=== PATIENT | male | born 1995 | race Caucasian/White ===

== ENCOUNTER → 2020-06-06 | Outpatient (CLI) | payer BC ==
--- NOTE | 2020-06-07 10:11 | RADIOLOGY REPORT (SQ) ---
EXAM DESCRIPTION: MRI LT LOWER JOINT WITHOUT IMAGES COMPLETED DATE/TIME: 06/06/2020 2:49 pm REASON FOR STUDY: M25.562 LEFT KNEE PAIN M25.562 PAIN IN LEFT KNEE COMPARISON: None. TECHNIQUE: Leftknee images acquired and stored on PACS. Multiplanar images include fat sensitive se quences as T1, water sensitive sequences as FST2 or STIR, cartilage sensitive sequences as FSPD, and gradient echo sequences. LIMITATIONS: None. FINDINGS: JOINT AND BURSAE: No effusion. BONE CORTEX AND MARROW: No alteration of signal to suggest marrow replacement. No worrisome bone lesi ons. No occult fracture. ACL: Intact. No degeneration or ganglion cyst. PCL: Intact. MCL: Intact. No periligamentous edema or fluid. LCL: Intact. No periligamentous edema or fluid. MEDIAL MENISCUS: No tears. No abnormal signal. LATERAL MENISCUS: No tears. No abnormal signal. MEDIAL COMPARTMENT: Cartilage preserved. No bone bruises or reactive marrow edema. No osteophytes. LATERAL COMPARTMENT: Cartilage preserved. No bone bruises or reactive marrow edema. No osteophytes. PATELLA: No chondral lesions. The tibial tuberosity to trochlear groove distance (TT-TG) is abnormal at 2.2 cm. EXTENSOR MECHANISM: Intact. Quadriceps and patella tendons normal. SOFT TISSUES: Trace Henry's cyst. Appropriate vascular flow voids. OTHER: No other significant finding. IMPRESSION: 1. Findings suggesting abnormal patellar instability, abnormal TT-TG distance. 2. No other internal derangement of the knee appreciated. Cruciate and collateral ligaments are inta ct. No meniscus tear or chondral lesions. TECHNICAL DOCUMENTATION: JOB ID: [id number]- All Rights Reserved Reading location - IP/workstation name: [email or web address]
== END ==
LOC: RAD 13:53
PROVIDERS: ATTEND Physician Assistant
DX: M25.562 Pain in left knee (principal)

== ENCOUNTER 2020-06-25 17:36 | Emergency (ER) | payer BC ==
[2020-06-25 17:51] VITALS: BP 111/63
--- NOTE | 2020-06-25 19:04 | ER Document Report ---
HPI - HPI Time Seen by Provider: 06/25/20 18:52 Context: Patient is a 25-year-old male he presents to the emergency department with a chief complaint of right low back pain. Patient states that he was bending over working the garden and felt pain in his back. This happened about 2 days ago. Patient is stable now. Denies any bladder or bowel dysfunction. Denies any history of drug use. Denies any history of cancer. - ROS Systems Reviewed and Negative: Yes All other systems reviewed and negative - CARDIOVASCULAR Cardiovascular: DENIES: Chest pain - RESPIRATORY Respiratory: DENIES: Trouble Breathing, Coughing - GASTROINTESTINAL Gastrointestinal: DENIES: Abdominal Pain, Nausea, Patient vomiting - URINARY Urinary: DENIES: Dysuria, Urgency, Frequency - MUSCULOSKELETAL Musculoskeletal: REPORTS: Back Pain - Right low. DENIES: Extremity pain, Swelling - DERM Skin Color: Normal Skin Problems: None Past Medical History - Social History Smoking Status: Current Every Day Smoker Family History: Reviewed & Not Pertinent Vertical Provider Document - CONSTITUTIONAL Agree With Documented VS: Yes Exam Limitations: No Limitations General Appearance: No Apparent Distress - HEENT HEENT: Atraumatic, Normocephalic, PERRLA - NECK Neck: Normal Inspection - RESPIRATORY Respiratory: Breath Sounds Normal, No Respiratory Distress - CARDIOVASCULAR Cardiovascular: Regular Rate, Regular Rhythm Pulses: Normal: Radial - MUSCULOSKELETAL/EXTREMETIES Musculoskeletal/Extremeties: FROM, Tender - Right low back - NEURO Level of Consciousness: Awake, Alert, Appropriate Motor/Sensory: No Motor Deficit, No Sensory Deficit - DERM Integumentary: Warm, Dry, No Rash Course - Re-evaluation Re-evalutation: 06/25/20 19:07 Differential diagnosis for back pain includes muscle spasm, muscle strain, slipped disc cauda equina syndrome, vertebral fracture, vertebral tumor, epidural abscess, pyelonephritis, or AAA. Based on history and exam, the most likely etiology of the patient's back pain is musculoskeletal in nature. Emergent MRI is not indicated at this time because the patient does not have new weakness, or cauda equina syndrome. Patient does not have bladder or bowel dysfunction. Patient does not have history of IV drug use, therefore, I do not suspect an epidural abscess. Patient does not have recent weight loss or night sweats, and does not have a known history of cancer. - Vital Signs Vital signs: Temp Pulse Resp BP Pulse Ox 98.6 F 73 16 111/63 99 06/25/20 17:50 06/25/20 17:50 06/25/20 17:50 06/25/20 17:50 06/25/20 17:50 Discharge - Discharge Clinical Impression: Back pain Qualifiers: Back pain location: low back pain Chronicity: acute Back pain laterality: right Sciatica presence: without sciatica Qualified Code(s): M54.5 - Low back pain Condition: Stable Disposition: HOME, SELF-CARE Additional Instructions: You were seen today in the emergency department for back pain. Your back pain is most consistent with muscle strain. You may take acetaminophen 1000 mg every 6 hours as needed for the pain. You may also buy [id number] Aspercreme with lidocaine and apply to the area per box instructions. Take Flexeril as needed for pain. Follow-up with your primary care provider in regards to this visit. If you develop a fever greater than 100.4 F, lose bowel or bladder function, are unable to walk, or have any symptoms that are worrisome to you, please return to the emergency department. Prescriptions: Cyclobenzaprine HCl [Flexeril 10 mg Tablet] 10 mg PO TIDP PRN #20 tab PRN Reason: Forms: Return to Work Referrals: RADHA MORALES MD [Primary Care Provider] - Follow up in 3-5 days
== END 2020-06-25 19:13 | disposition home or self-care (01) ==
LOC: ER 17:36
DX: M54.5 Low back pain (principal); F17.200 Nicotine dependence, unspecified, uncomplicated
CPT/HCPCS: 99283